=== PATIENT | female | born 1970 | race Hispanic/Latino ===

== ENCOUNTER 2019-06-06 16:43 | Emergency (ER) | payer SELFPAY ==
[~2019-06-06] VITALS: Ht 160 cm; Wt 86.2 kg
[~2019-06-06 16:43] MED LIST: TYLENOL PO; TYLENOL WITH C1 EACH PO; ULTRAM50 MG PO
== END 2019-06-06 17:49 | disposition left against medical advice (07) ==
LOC: ER 16:43
DX: M54.5 Low back pain (principal)